=== PATIENT | male | born 1980 | race Hispanic/Latino ===

== ENCOUNTER 2021-05-19 16:50 | Emergency (ER) | payer OTHER, BC ==
[2021-05-19] MEDS ORDERED: LORazepam 2 MG/ML VIAL ONE (17:35)
[2021-05-19] MEDS ORDERED: KETOROLAC 30 MG/ML INJ ONE (17:35)
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
[2021-05-19] MEDS ORDERED: TETANUS & DIPHTHERIA TOX,ADULT 0.5 ML VIAL ONE (20:20)
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
[2021-05-19 21:57] VITALS: TEMP 98
[2021-05-19 22:09] VITALS: BP 148/87; O2SAT 97
== END 2021-05-19 21:01 | disposition home or self-care (01) ==
LOC: ER 16:50
DX: S16.1XXA Strain of muscle, fascia and tendon at neck level, initial encounter (principal); S50.811A Abrasion of right forearm, initial encounter; S50.812A Abrasion of left forearm, initial encounter; S40.811A Abrasion of right upper arm, initial encounter; S00.93XA Contusion of unspecified part of head, initial encounter; V47.5XXA Car driver injured in collision with fixed or stationary object in traffic accident, initial encounter; Z23 Encounter for immunization
CPT/HCPCS: 70450; 71045; 72125; 90471; 90714; 96374; 96375; 99283